=== PATIENT | female | born 1940 | race Caucasian/White ===

== ENCOUNTER 2016-06-17 14:39 | Emergency (ER) | payer MEDICARE, BC ==
[~2016-06-17] VITALS: Ht 157.5 cm; Wt 75.0 kg
[2016-06-17 14:48] VITALS: BP 172/95; PULSE 71; RESP 16; TEMP 97.9; O2SAT 97
[2016-06-17] MEDS ORDERED: LISI2.5T3 PO (15:12)
[2016-06-17] MEDS ORDERED: TRAM50TA PO (15:12)
[2016-06-17] MEDS ORDERED: PLAQ200T PO (15:12)
[2016-06-17] MEDS ORDERED: HYDR10TA23 PO (15:12)
[2016-06-17] MEDS ORDERED: THYR15 PO (15:12)
[2016-06-17] MEDS ORDERED: NORC5TAB PO (15:12)
--- NOTE | 2016-06-17 15:19 | PD ---
HPI Chief Complaint: Laceration/Skin Injury Time Seen by Provider: 15:00 Travel History International Travel<30 days: No Contact w/Intl Traveler<30days: No Traveled to known affect area: No History of Present Illness HPI 76-year-old female presents the emergency department with laceration to the top of her left foot. Patient was at a local store when she dropped a perfume bottle which broke and caused a laceration to the medial dorsal left foot. Patient complains of no significant pain, numbness, or weakness. Her tetanus is up-to-date. Bleeding was controlled with a pressure dressing applied at the store. Patient was brought here by her friend. Patient is allergic to Bactrim, Cipro, and Prilosec [facility] Past Medical History Cardiovascular Problems: Yes (htn on meds) Social History Alcohol Use: Yes Tobacco Use: No Substance Use: No Allergies-Medications (Allergen,Severity, Reaction): Coded Allergies: Prilosec (Verified Allergy, Severe, Anaphylaxis, 06/17/16) Bactrim (Verified Allergy, Intermediate, skin rask, 06/17/16) Cipro (Verified Allergy, Intermediate, rash/hives, 06/17/16) Reported Meds & Prescriptions Reported Meds & Active Scripts Active Keflex (Cephalexin) 500 Mg Cap 500 Mg PO Q8H 15 Days Reported Hydralazine (Hydralazine HCl) 10 Mg Tab Unknown Dose PO BID Take with a meal Benton (Hydrocodone-Acetaminophen) 5-325 mg Tab Unknown Dose PO Q8HR PRN Tramadol (Tramadol HCl) 50 Mg Tab Unknown Dose PO BID PRN Plaquenil (Hydroxychloroquine Sulfate) 200 Mg Tab Unknown Dose PO BID Take with food Lisinopril 2.5 Mg Tab Unknown Dose PO BID Norton Thyroid (Thyroid) 15 Mg Tab Unknown Dose PO DAILY Review of Systems Except as stated in HPI: all other systems reviewed are Neg General / Constitutional: No: Fever Eyes: No: Visual changes HENT: No: Headaches Cardiovascular: No: Chest Pain or Discomfort Respiratory: No: Shortness of Breath Gastrointestinal: No: Abdominal Pain Genitourinary: No: Dysuria Musculoskeletal: No: Pain Skin: No Rash Neurologic: No: Weakness Psychiatric: No: Depression Endocrine: No: Polydipsia Hematologic/Lymphatic: No: Easy Bruising Physical Exam Narrative GENERAL: Patient appears in no acute distress. SKIN: Warm and dry. Normal color. Normal turgor. Patient has a regular 1 cm superficial laceration to the left dorsal medial foot. No sign of foreign body on exam. No significant bleeding currently. HEAD: Atraumatic. Normocephalic. EYES: Pupils equal and round. No scleral icterus. No injection or drainage. ENT: No nasal bleeding or discharge. Mucous membranes pink and moist. NECK: Trachea midline. No JVD. CARDIOVASCULAR: Regular rate and rhythm. RESPIRATORY: No accessory muscle use. Clear to auscultation. Breath sounds equal bilaterally. MUSCULOSKELETAL: Extremities without clubbing, cyanosis, or edema. No obvious deformities. Full range of motion strength and sensation distal to the wound. NEUROLOGICAL: Awake and alert. No obvious cranial nerve deficits. Motor grossly within normal limits. Five out of 5 muscle strength in the arms and legs. Normal speech. PSYCHIATRIC: Appropriate mood and affect; insight and judgment normal. Data Data Last Documented VS Vital Signs Date Time Temp Pulse Resp B/P Pulse Ox O2 Delivery O2 Flow Rate FiO2 06/17/16 14:48 97.9 71 16 172/95 97 MDM Medical Decision Making Medical Screen Exam Complete: Yes Emergency Medical Condition: Yes Differential Diagnosis Laceration left foot. Accidental laceration. Left foot pain. Narrative Course Patient is medically stable at time of exam. Wound is already well approximated. Foot is soaked in Betadine and saline for 10 minutes. Wound is closed with Steri-Strips and Dermabond. Wound care is discussed with the patient. Patient can take her regular Tylenol and tramadol for pain. Patient can use ice as needed in this area. Patient is given Keflex 500 mg 3 times a day for 5 days. Patient follow-up with her primary care physician or return to the emergency department as needed. Procedures Procedure Narrative LACERATION LOCATION: Dorsal medial left foot LENGTH: 1 cm NUMBER OF STITCHES/MARINO: [-] REPAIR: The area of the laceration was prepped with Betadine and sterilely draped. The wound was copiously irrigated and explored without evidence of foreign body, tendon injury or neurovascular injury. The wound was closed using Steri-Strips and Dermabond. This was a single layer repair. A sterile dressing was applied. The patient was advised to keep the dressing clean and dry. Patient tolerated the procedure well. Diagnosis Primary Impression: Laceration of left foot without foreign body Qualified Code: S91.312A - Laceration of left foot without foreign body, initial encounter Referrals: Primary Care Physician Patient Instructions: General Instructions, Steristrips (ED) Additional Instructions: Wound is already well approximated. Foot is soaked in Betadine and saline for 10 minutes. Wound is closed with Steri-Strips and Dermabond. Wound care is discussed with the patient. Patient can take her regular Tylenol and tramadol for pain. Patient can use ice as needed in this area. Patient is given Keflex 500 mg 3 times a day for 5 days. Patient follow-up with her primary care physician or return to the emergency department as needed. Med/Other Pt SpecificInfo: Prescription(s) given, Wound Care Scripts Cephalexin (Keflex)500 Mg [id number] Mg PO Q8H 15 Days Prov:Leisa Romero MD 06/17/16 Disposition: 01 DISCHARGE HOME Condition: Stable Brent Gallego June 17, 2016 15:19
[2016-06-17] MEDS ORDERED: CEPH-460 PO (15:37)
== END 2016-06-17 16:01 | disposition home or self-care (01) ==
LOC: PHEFT 14:39
DX: S91.312A Laceration without foreign body, left foot, initial encounter (principal); W25.XXXA Contact with sharp glass, initial encounter; Y93.89 Activity, other specified; Y92.512 Supermarket, store or market as the place of occurrence of the external cause; Y99.8 Other external cause status
CPT/HCPCS: 12001